=== PATIENT | female | born 1985 | race Caucasian/White ===

== ENCOUNTER → 2019-06-14 13:25 | Outpatient (BNVA) | payer MEDICAID, SELFPAY | PROVIDERS: Family Provider Obstetrics & Gynecology; Visit Provider Obstetrics & Gynecology | DX: O09.891 Supervision of other high risk pregnancies, first trimester (principal); O98.411 Viral hepatitis complicating pregnancy, first trimester; O99.340 Other mental disorders complicating pregnancy, unspecified trimester | CPT/HCPCS: 80307; 84315; 85027; 86592; 86762; 86803; 86850; 86900; 87086; 87340 ==

== ENCOUNTER → 2019-07-05 15:30 | Outpatient (BNVA) | payer MEDICAID, SELFPAY | PROVIDERS: Family Provider Obstetrics & Gynecology; Visit Provider Obstetrics & Gynecology | DX: O09.891 Supervision of other high risk pregnancies, first trimester (principal); O36.1110 Maternal care for Anti-A sensitization, first trimester, not applicable or unspecified | CPT/HCPCS: 84315; 86886; 87491; 87591; 88175 ==

== ENCOUNTER → 2019-07-24 15:09 | Outpatient (BNVA) | payer MEDICAID, SELFPAY | PROVIDERS: Family Provider Obstetrics & Gynecology; Visit Provider Obstetrics & Gynecology Female Pelvic Medicine and Reconstructive Surgery | DX: O09.891 Supervision of other high risk pregnancies, first trimester (principal); O98.412 Viral hepatitis complicating pregnancy, second trimester; B19.20 Unspecified viral hepatitis C without hepatic coma; Z3A.16 16 weeks gestation of pregnancy | CPT/HCPCS: 80076; 80307; 84315; 86850; 86886; 86900 ==

== ENCOUNTER → 2019-08-21 13:53 | Outpatient (BNVA) | payer MEDICAID, SELFPAY | PROVIDERS: Family Provider Obstetrics & Gynecology; Referring Provider Obstetrics & Gynecology; Visit Provider Obstetrics & Gynecology | DX: Z36.89 Encounter for other specified antenatal screening (principal); Z3A.21 21 weeks gestation of pregnancy | CPT/HCPCS: 76805 ==

== ENCOUNTER → 2019-08-28 11:47 | Outpatient (BNVA) | payer MEDICAID, SELFPAY | PROVIDERS: Family Provider Obstetrics & Gynecology; Visit Provider Obstetrics & Gynecology | DX: Z48.89 Encounter for other specified surgical aftercare (principal); O09.892 Supervision of other high risk pregnancies, second trimester; Z87.42 Personal history of other diseases of the female genital tract; Z3A.21 21 weeks gestation of pregnancy | CPT/HCPCS: 76817; 80076; 84315 ==

== ENCOUNTER → 2019-09-19 13:40 | Outpatient (BNVA) | payer MEDICAID, SELFPAY | PROVIDERS: Family Provider Obstetrics & Gynecology; Visit Provider Obstetrics & Gynecology | DX: O09.892 Supervision of other high risk pregnancies, second trimester (principal); O36.1910 Maternal care for other isoimmunization, first trimester, not applicable or unspecified | CPT/HCPCS: 81000; 86787; 86870; 86886 ==

== ENCOUNTER → 2019-10-18 14:20 | Outpatient (BNVA) | payer MEDICAID, SELFPAY | PROVIDERS: Family Provider Obstetrics & Gynecology; Visit Provider Obstetrics & Gynecology | DX: O09.892 Supervision of other high risk pregnancies, second trimester (principal) | CPT/HCPCS: 82950; 84315; 85027 ==

== ENCOUNTER → 2019-11-16 08:58 | Outpatient (BNVA) | payer MEDICAID, SELFPAY | PROVIDERS: Family Provider Obstetrics & Gynecology; Visit Provider Obstetrics & Gynecology | DX: O09.893 Supervision of other high risk pregnancies, third trimester (principal); O36.1130 Maternal care for Anti-A sensitization, third trimester, not applicable or unspecified; O99.323 Drug use complicating pregnancy, third trimester | CPT/HCPCS: 80307; 84315 ==

== ENCOUNTER 2019-11-20 12:28 | Outpatient (CLI) | payer MEDICAID, SELFPAY ==
[2019-11-20] VITALS (24 sets, daily range): BP systolic 0–131; BP diastolic 0–85; PULSE 59–77; RESP 18; TEMP 36.6; O2SAT 99–100; BMI 26.1
--- NOTE | 2019-11-20 13:02 | US_ITS ---
WS: [id number] ULTRASOUND OB FOCUSED HISTORY: vaginal bleeding, evaluate placenta COMPARISON: 11/16/2019 and 08/21/2019 Anterior placenta with no previa or abruption. Placenta ends well above the cervical os. Placenta gra de 2. heart rate at 131 BPM. US/US OB limited [id number] IMPRESSION: Anterior grade 2 placenta.
[2019-11-20] MEDS: terbutaline 1 mg/mL INJ 0.25 MG SUBCUT (14:31)
== END 2019-11-20 16:19 | disposition home or self-care (01) ==
LOC: OPOB 12:42 → OBGYN 16:11
PROVIDERS: Family Provider Obstetrics & Gynecology; Visit Provider Obstetrics & Gynecology
DX: O26.899 Other specified pregnancy related conditions, unspecified trimester (principal); Z3A.00 Weeks of gestation of pregnancy not specified; R10.9 Unspecified abdominal pain; O46.90 Antepartum hemorrhage, unspecified, unspecified trimester
CPT/HCPCS: 59025; 76815; 96372; 99211; J3105

== ENCOUNTER 2019-11-24 09:23 | Outpatient (CLI) | payer MEDICAID, SELFPAY ==
--- NOTE | 2019-11-24 09:29 | US_ITS ---
WS: [id number] BIOPHYSICAL PROFILE HISTORY: Evaluate well-being. COMPARISON: 11/18/2019 Cardiac activity: 144 bpm. Cervix: closed. Placenta: Anterior, no previa or abruption. Placenta grade: 2 Parameters are as follows: Breathin Movement: 2 Tone: 2 Fluid volume: 2 Largest vertical pocket of amniotic fluid is 8.2 cm. 1. Biophysical profile score: 8/8. 2. Largest vertical pocket of amniotic fluid is 8.2 cm. Abundant amount of amniotic fluid. US/US OB BPP wo NST 20030 IMPRESSION:
== END 2019-11-24 09:24 | disposition home or self-care (01) ==
PROVIDERS: Family Provider Obstetrics & Gynecology; Visit Provider Obstetrics & Gynecology
DX: O09.893 Supervision of other high risk pregnancies, third trimester (principal); O36.1130 Maternal care for Anti-A sensitization, third trimester, not applicable or unspecified
CPT/HCPCS: 76819

== ENCOUNTER → 2019-12-14 10:11 | Outpatient (BNVA) | payer MEDICAID, SELFPAY | PROVIDERS: Family Provider Obstetrics & Gynecology; Visit Provider Obstetrics & Gynecology | DX: O99.323 Drug use complicating pregnancy, third trimester (principal); Z3A.36 36 weeks gestation of pregnancy; O36.1130 Maternal care for Anti-A sensitization, third trimester, not applicable or unspecified; O99.343 Other mental disorders complicating pregnancy, third trimester; F32.9 Major depressive disorder, single episode, unspecified; F12.90 Cannabis use, unspecified, uncomplicated; O98.513 Other viral diseases complicating pregnancy, third trimester; O99.333 Smoking (tobacco) complicating pregnancy, third trimester; F17.210 Nicotine dependence, cigarettes, uncomplicated; O98.413 Viral hepatitis complicating pregnancy, third trimester; B19.20 Unspecified viral hepatitis C without hepatic coma | CPT/HCPCS: 84315; 87081 ==

== ENCOUNTER 2019-12-29 12:30 | Inpatient (IN) | payer MEDICAID, SELFPAY ==
[2019-12-29] VITALS (94 sets, daily range): BP systolic 0–156; BP diastolic 0–91; PULSE 46–82; RESP 16–17; TEMP 36.4–37.1; O2SAT 98–100; BMI 28.4
[2019-12-29 13:23] LABS: Basophils % 0.1 %; Eosinophils % 0.2 %; Hematocrit 37.1 % (37.0-47.0); Hemoglobin 12.3 g/dL (11.5-15.3); Lymphocytes # 2.3 10^3/uL (0.8-4.8); Mean Corpuscular HGB Conc 33.2 g/dL (30.0-36.0); Mean Corpuscular Hemoglobin 31.8 pg (28.0-34.0); Mean Corpuscular Volume 95.9 fL (81-99); Mean Platelet Volume 10.6 fL (7.4-10.4); Monocytes # 0.5 10^3/uL (0.2-0.9); Monocytes % 3.5 %; Neutrophils # 11.28 10^3/uL (1.8-7.7); Neutrophils % 79.8 %; Nucleated Red Blood Cells % 0 %; Platelet Count 218 10^3/cmm (130-400); Red Blood Count 3.87 10^6/uL (4.1-5.3); Red Cell Distribution Width 12.6 % (12.1-15.1); White Blood Count 14.2 10^3/uL (4.0-10.0)
[2019-12-29] MEDS: lactated ringers 1,000 ML 999 ML IV ×2 (13:23→16:24)
[2019-12-29 13:44] LABS: Amphetamines Screen Urine Negative (Negative); Barbiturates Screen Urine Negative (Negative); Benzodiazepines Screen Urine Negative (Negative); Cocaine Screen Urine Negative (Negative); Opiate Screen Urine Negative (Negative); PCP Screen Urine Negative (Negative); THC Screen Urine Positive (Negative)
[2019-12-29] MEDS: miSOPROStol 100 mcg tablet 25 MCG VAGINAL (13:57)
--- NOTE | 2019-12-29 18:45 | P.ANESASSM_ITS ---
Pre-Anesthetic Assessment Pre-Anesthetic Assessment: Height/Weight: Height 1.65 m Weight 77.564 kg Temp Pulse Resp BP Pulse Ox 98.2 F 75 16 125/81 98 12/29/19 18:00 12/29/19 18:43 12/29/19 18:00 12/29/19 18:43 12/29/19 18:13 Preop Diagnosis: IUP Proposed Procedure: Labor epidural Familial anesthetic complications: denies Was Beta Fang taken within 24 hours: N/A Last Intake: 00:00 Social: Social History: Tobacco and No alcohol Comment: THC Exam: Pre-Anes Outpt Exam: alert and oriented x 3 Airway: Submandibular: WNL Cervical ROM: WNL MP: 2 Dentition: Full Additional comments: upper dentures Pulmonary: Pulmonary: None reported CV/HEM: CV/HEM: None reported : : None reported Hepatic: Hepatic: Hepatitis (HepC) GI: GI: None reported Metabolic: Metabolic: None reported Musc/skel: Musc/skel: None reported Neuropsych: Neuropsych: Anxiety Anesthetic Plan: ASA status: 2 Anesthesia: Anesthesia Evaluation and MAC Meds/Allergies Current Medications: Current Medications Generic Name Dose Route Start Last Admin Trade Name Freq PRN Reason Stop Dose Admin Lactated Ringer's 1,000 mls @ 999 m ls/hr 12/29/19 12:29 12/29/19 17:00 Lactated Ringers IV 125 mls/hr .Q1H1M PRN Infusion hypotension Ropivacaine 200 mg in 100 mls @ 13 mls/hr 12/29/19 12:30 12/29/19 17:56 Naropin Premix EPIDURAL 13 mls/hr .Q7H42M MYKEL Administration Dextrose/Lactated Ringer's 1,000 mls @ 125 m ls/hr 12/29/19 12:30 12/29/19 16:29 Dextrose 5%-Lact ated Ringers IV Not Given .Q8H MYKEL PFSH Anesthesia PFSH: Medical History Cervical intraepithelial neoplasia III History of BECKY 3-status post LEEP Hepatitis C infection States was never treated. Herpes genitalia Diagnosed in teens. Last outbreak years ago as of 2019 Surgical History S/P breast biopsy (06/13/11) Right. Benign. Performed in [place]. Family History Other Adopted Social History Smoking and tobacco status: current every day smoker cigarettes Packs smoked per day: 0.50 [ Other cigarette details: has decreased from 1ppd. Started smoking at age 20. ] Quit status (tobacco): not considering quitting Alcohol intake: never Other details last substance use: Denies drug use. Adopted: Yes Female Reproductive History: Date of last menstrual period: 04/01/19 : 2 Data Anesthesia CBC & Chem 7: 12/29/19 12:50 Other Labs: Laboratory Results - last 48 hr 12/29/19 12/29/19 12:00 12:50 WBC 14.2 H RBC 3.87 L Hgb 12.3 Hct 37.1 MCV 95.9 MCH 31.8 MCHC 33.2 RDW 12.6 Plt Count 218 MPV 10.6 H Neut % (Auto) 79.8 Lymph % (Auto) 16.0 [place] % (Auto) 3.5 Eos % (Auto) 0.2 Baso % (Auto) 0.1 Neut # (Auto) 11.28 H Lymph # (Auto) 2.3 [place] # (Auto) 0.5 Eos # (Auto) 0.0 Baso # (Auto) 0.0 Nucleated RBC % (auto) 0 Nucleated RBCs # 0.0 Urine Opiates Screen Negative Ur Barbiturates Screen Negative Ur Phencyclidine Scrn Negative Ur Amphetamines Screen Negative U Benzodiazepines Scrn Negative Urine Cocaine Screen Negative U Marijuana (THC) Screen Positive H Cardiac Studies: No Data to Display
--- NOTE | 2019-12-29 18:48 | ANES.PROC ---
Anesthesia Procedures Procedure/Date: 12/29/19 Epidural: Time Out Performed: Yes Consents Signed: Procedure Consent Consent: requested by attending/covering physician and risks and benefits reviewed Lumbar Level: L3-L4 Epidural position: sitting Epidural procedure: sterile prep of area, 1% lidocaine to numb the area (3cc), 18 g needle (L3-L4 interspace), neg for paresthesia, test dose given (3 cc), 0.2% Ropivacaine bolus ml (10), placed PCEA, no systemic response, sterile dressing applied and 0.2% Ropiavacaine @ mls/hr (13 mls/hr )
[2019-12-29] MEDS: dextrose 5%-lactated ringers 1,000 ML 125 ML IV (19:34)
[2019-12-29] MEDS: oxytocin 30 UNIT/500 ML BAG IV (20:37)
[2019-12-30] VITALS (33 sets, daily range): BP systolic 0–164; BP diastolic 0–94; PULSE 41–69; RESP 16–18; TEMP 36.4–36.8; O2SAT 97–99
[2019-12-30] MEDS: dextrose 5%-lactated ringers 1,000 ML 125 ML IV (03:24)
--- NOTE | 2019-12-30 04:05 | PM.DELIVERY ---
Delivery Note: Date of delivery: December 30, 2019 Pre-delivery diagnoses: 1. at 39-0/7 weeks gestation. 2. Drug use complicating in third trimester 3. Depression complicating in third trimester 4. Hepatitis C complicating in third trimester 5. 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 6. History of genital herpes complicating in third trimester Post-delivery diagnoses: 1. Term at 39-0/7 weeks gestation - delivered. 2. Drug use complicating - delivered. 3. Depression complicating - delivered 4. Hepatitis C complicating - delivered 5. Maternal isoimmunization (anti-E) complicating - delivered 6. History of genital herpes complicating - delivered. 7. Viable female infant Procedure: Spontaneous vaginal delivery Op report anesthesia: Epidural Delivering Physician: Dr. Janes Leon Estimated blood loss (mL): 100 Pre-Delivery Course: Patient is a 34-year-old white female 2, para 1-0-0-1 with an LMP of 04/01/2019 and an EDC of 01/06/2020 based on LMP and consistent with a 20-week ultrasound. She presented to labor and delivery at 11:50 on 12/29/2019 with a complaint of possible rupture membranes. She stated that she had a gush of fluid at approximately 09:30 that morning which was clear in color. She reported having only sporadic contractions. On evaluation, she was identified as having ruptured membranes. She was 75% effaced and 2 cm dilated at the time. Her care has been mainly provided by Dr. Janes Leon at [facility]. Her care has been complicated by history of drug use. She was initially on Suboxone and was switched to just buprenorphine during the due to past history of heroin use. This was provided by [facility] in [place], [place]. She reported she had not used heroin since 11/2012. She wasshe had been using marijuana prior to and was still using it through the . She was also initially followed for maternal isoimmunization with anti-E. Titers remained low in the beginning part of . Father of baby was eventually tested and tested negative for the E antigen. She also had prepregnancy depression and has been treated with fluoxetine during the . She was known to have hepatitis C prior to with a viral load of 6.60 log IU/ml at the beginning of . She also had a history of genital herpes, but did not have any outbreaks during the . She was started on suppression with acyclovir starting at 37 weeks in the . She received 1 dose of Cytotec 25 mcg vaginally at 13:57. She started edgardo following this and became more uncomfortable in the afternoon. She had epidural placed. She had made minimal change through the afternoon and by around 20:00 her contractions had spaced out enough that Pitocin augmentation was ordered. This was started at 20:37. Pitocin was titrated up to 5 milliunits/min before she developed hyperstimulation of the uterus with tachysystole at 21:20 and developed a deceleration that started at 21:25. Pitocin was stopped, position changes were done, oxygen was placed and scalp electrode placed. Baby recovered and had return to baseline by 21:34. She was 6 cm dilated at that time. She recovered well following the deceleration with return of reactivity. She would have occasional variable and early decelerations. She continued to contract frequent enough and made cervical change and Pitocin was not restarted. She was found to be completely dilated by 01:30 on 12/29. Delivery: She was initially very comfortable with epidural and labored down. She started pushing at 03:13. She delivered at 03:48 as a spontaneous vaginal delivery of an occiput anterior female infant over an intact perineum under epidural anesthesia. Following delivery of the 's head, no nuchal cords were noted. Both hands were at delivering adjacent to the right cheek. Both arms were swept out and the rest the baby delivered atraumatically with the left shoulder anterior. Baby was spontaneously crying and was placed on the mother's abdomen. Cord was clamped and then cut by the reported father the baby. Baby was left in the care of the waiting nurses. Pitocin bolus was started. Placenta delivered intact by simple expression at 03:52. The cervix and vagina were palpated and noted to be intact. The labia were inspected and noted to be intact except for superficial bilateral periurethral lacerations which required no repair. FINDINGS 1. Viable female weighing 6 lbs 9 oz (2965 g) with Apgars of 10 at 1 minute and 10 at 5 minutes. 2. Three-vessel cord with no loops of nuchal cord noted. 3. Normal-appearing placenta with a central cord insertion. Post-Delivery Status: Mother and were left to recover in satisfactory condition. A&P Assessment and plan (1) complicated by maternal drug use, delivered, curr hospitaliz: Status: Acute (2) Mental disorder of mother, with delivery: Status: Acute (3) Chronic hepatitis C virus infection affecting , delivered, current hospitalization: Status: Acute (4) Genital herpes affecting , delivered, current hospitalization: Status: Acute (5) Maternal care for isoimmunization during antepartum period, currently delivered: Status: Acute Coding Level of Care Code Acute Gymnastics Instructor for Chg Fwd Diagnoses complicated by maternal drug use, delivered, curr hospitaliz O99.324; F19.90 Mental disorder of mother, with delivery O99.344 Chronic hepatitis C virus infection affecting , delivered, current hospitalization O98.42; B18.2 Genital herpes affecting , delivered, current hospitalization O98.32; A60.09 Maternal care for isoimmunization during antepartum period, currently delivered O36.1190
[2019-12-30] MEDS: benzocaine-menthol 78 gm Canister 1 SPRAY TOPICAL (06:32)
[2019-12-30] MEDS: lanolin oint 7 gm 1 APPLIC TOPICAL (06:33)
[2019-12-30] MEDS: prenatal vitamin Capsule 1 CAP PO (08:10)
[2019-12-30] MEDS: fluoxetine 10 mg Capsule PO (08:10)
[2019-12-30] MEDS: acyclovir 400 mg Tablet PO ×2 (08:10→17:15)
[2019-12-30 17:37] LABS: Hematocrit 34.8 % (37.0-47.0); Hemoglobin 11.5 g/dL (11.5-15.3); Mean Corpuscular Hemoglobin 32.4 pg (28.0-34.0); Mean Platelet Volume 10.3 fL (7.4-10.4); Platelet Count 194 10^3/cmm (130-400); Red Blood Count 3.55 10^6/uL (4.1-5.3); Red Cell Distribution Width 12.6 % (12.1-15.1); White Blood Count 16.3 10^3/uL (4.0-10.0)
[2019-12-31 05:00] VITALS: BP 128/80; PULSE 101; RESP 18; TEMP 36.6
[2019-12-31 09:35] VITALS: BP 124/71; PULSE 58; RESP 16; TEMP 36.6
[2019-12-31] MEDS: acyclovir 400 mg Tablet PO ×2 (09:38→18:33)
[2019-12-31] MEDS: fluoxetine 10 mg Capsule PO (09:38)
[2019-12-31] MEDS: prenatal vitamin Capsule 1 CAP PO (09:38)
[2019-12-31] MEDS: docusate sodium 100 mg Capsule PO ×2 (09:38→18:33)
[2019-12-31 15:50] VITALS: BP 136/82; PULSE 64; RESP 16; TEMP 36.8
--- NOTE | 2019-12-31 16:59 | P.DS_ITS ---
Discharge Providers DEVELOPER [employer]ING Date of Admission: 12/29/19 12:30 Date of Discharge: 12/31/19 Attending Provider at Admission: Janes Leon MD Attending Provider at Discharge: Janes Leon MD Diagnoses at Discharge Discharge Diagnosis (1) complicated by maternal drug use, delivered, curr hospitaliz: Status: Acute (2) Mental disorder of mother, with delivery: Status: Acute (3) Chronic hepatitis C virus infection affecting , delivered, current hospitalization: Status: Acute (4) Genital herpes affecting , delivered, current hospitalization: Status: Acute (5) Maternal care for isoimmunization during antepartum period, currently delivered: Status: Acute Reason for Visit Reason for Visit: Possible ROM prior to arrival Hospital Course Hospital Course: Patient is a 34-year-old white female 2, para 1-0-0-1 with an LMP of 04/01/2019 and an EDC of 01/06/2020 based on LMP and consistent with a 20-week ultrasound. She was 38-6/7 weeks gestation at the time of admission. She presented to labor and delivery on 12/29/2019 at 11:50 with complaint of possible rupture of membranes. She reported having a gush of fluid at about 9:30 in the morning which was clear in color. She reported having sporadic contractions. On evaluation she was found to be ruptured and was 75% effaced and 2 cm dilated. care has been complicated by history of drug use (IV heroin) with no use since 11/2012. She was in drug treatment at [facility] in [place], [place]. She was taking Suboxone initially and was switched to buprenorphine during the . She has been using marijuana during the . She also has hepatitis C. She has a history of genital herpes with no outbreaks during the . She is has been on suppression with acyclovir for the last 2 weeks of the . She had anti-E isoimmunization identified at the beginning of the ; however, titers had remained low during the . With her ruptured membranes and cervix on admission, she was given 1 dose of Cytotec 25 mcg vaginally. She became more comfortable following this and had epidural placed. However, she made minimal change and had Pitocin started. Following this she developed hyperstimulation of the uterus and had a prolonged deceleration which recovered after stopping Pitocin and oxygen placement. She continued to contract on her own following this and eventually progressed to complete dilation by 01:30 on 12/29. She was initially very comfortable and allowed to labor down. She started pushing at 03:13 and delivered at 03:48 as a spontaneous vaginal delivery of an occiput anterior female infant over an intact perineum under epidural anesthesia. Baby weighed 6 lbs 9 oz (2965 g) with Apgars of 10 at 1 minute and 10 at 5 minutes. She had superficial bilateral periurethral lacerations which required no repair. Both mother and did well following delivery. Day 1 Patient denies complaints at this time. Reports tolerating a regular diet without nausea or vomiting. Denies headaches. Denies shortness of breath or chest pains. Denies lightheadedness or dizziness with ambulation. Reports bleeding has slowed. Denies problems with urination. Physical Exam: See below. Plan Patient has been continued on her usual home medications during the hospitalization including the fluoxetine and buprenorphine. She is doing well at this time and is being discharged from the hospital. However, baby will not be released at this time in order for monitoring for possible narcotic withdrawal. Patient plans to room-in with the baby. Discharge to home. Discharge instructions discussed with patient. She is to follow-up in the office in approximately 6 weeks. Information Peripartum Data: Infant Delivery Method: Vaginal Physical Exam Const: COMMON NORMALS: no acute distress, average body habitus, alert and well nourished GENERAL APPEARANCE: well developed ORIENTATION/CONSCIOUSNESS: Yes oriented to person, Yes oriented to place and Yes oriented to time Resp: COMMON NORMALS: normal respiratory effort and clear to auscultation bilaterally AUSCULTATION: clear to auscultation bilaterally Cardio: COMMON NORMALS: regular rate, regular rhythm, No gallops present (Cardio) and No rub (Cardio) RATE: regular rate RHYTHM: regular rhythm GI: COMMON NORMALS: Soft to palpation, non-tender, No hepatosplenomegaly present and no masses (Except for nontender uterus, approximately 2 fingerbreadths below umbilicus.) AUSCULTATION: Yes normoactive bowel sounds PALPATION: Yes Soft to palpation and Yes No hepatosplenomegaly present Extremity: COMMON NORMALS: no calf tenderness NARRATIVE EXTREMITY EXAM: Trace lower extremity edema bilaterally Neuro: SENSORIUM/ORIENTATION: Yes alert, Yes oriented to person, Yes oriented to place and Yes oriented to time Psych: COMMON NORMALS: normal affect MOOD & AFFECT: Yes euthymic mood Urinary Catheter Management^: Edward: Cath Placed During This Visit: yes, but has since been removed by the nurse Reason for Continuing Indwelling Catheter: Other Urinary Catheter Date of Insertion: 12/29/19 Urinary Catheter Time of Insertion: 18:13 Date Urinary Catheter Removed: 12/30/19 Time Urinary Catheter Discontinued: 03:11 Discharge Data Data Completed and Pending: Labs from last 24 hours 12/30/19 17:31 WBC 16.3 H RBC 3.55 L Hgb 11.5 Hct 34.8 L MCV 98.0 MCH 32.4 MCHC 33.0 RDW 12.6 Plt Count 194 MPV 10.3 Vitals: Last Vital Signs Temp 97.8 F 12/31/19 09:35 Pulse 58 L 12/31/19 09:35 Resp 16 12/31/19 09:35 BP 124/71 12/31/19 09:35 Pulse Ox 98 12/30/19 17:00 Discharge Plan Discharge Patient Disposition: Home Condition: Stable Prescriptions: Continued prenat.vits,bere,[id number] Tablet 1 tab PO DAILY RF: 0 fluoxetine 10 mg capsule 10 mg PO DAILY Qty: 30 RF: 12 acyclovir 400 mg tablet 400 mg PO BID 30 Days Qty: 60 RF: 1 buprenorphine HCl 8 mg tablet, sublingual 8 mg SUBLINGUAL BID RF: 0 Discharge Orders: Discharge Order (Routine); Ordered 12/31/19 Ordered By: Janes Leon Referrals: Janes Leon MD [Family Provider] - 6 Weeks Discharge Diet: Regular Discharge Activity: Resume usual activity Patient Instructions: OB Vaginal Deliveries - [facility] Activity Restrictions/Additional Instructions: May use [id number] ibuprofen 200 mg, 3 tablets 4 times a day or 4 tablets 3 times a day, as needed for pain. Discharge Attestations [employer]ELOPER [employer] Time Spent in Discharge Care*: less than 30 min Coding Level of Care Code Acute Sound Art Instructor for Chg Fwd Diagnoses complicated by maternal drug use, delivered, curr hospitaliz O99.324; F19.90 Mental disorder of mother, with delivery O99.344 Chronic hepatitis C virus infection affecting , delivered, current hospitalization O98.42; B18.2 Genital herpes affecting , delivered, current hospitalization O98.32; A60.09 Maternal care for isoimmunization during antepartum period, currently delivered O36.6218
[2019-12-31 18:05] VITALS: BP 135/81; PULSE 101; RESP 16; TEMP 36.4
[2019-12-31 20:00] VITALS: BP 135/81; PULSE 101; RESP 16; TEMP 36.4
== END 2019-12-31 20:00 | disposition home or self-care (01) | DRG 806 ==
LOC: OBGYN 12-31 17:14 → OPOB 01-01 08:17
PROVIDERS: Admitting Provider Obstetrics & Gynecology; Family Provider Obstetrics & Gynecology; Visit Provider Obstetrics & Gynecology
DX: O42.02 Full-term premature rupture of membranes, onset of labor within 24 hours of rupture (principal); O98.32 Other infections with a predominantly sexual mode of transmission complicating childbirth; Z37.0 Single live birth; O98.42 Viral hepatitis complicating childbirth; O99.324 Drug use complicating childbirth; Z3A.38 38 weeks gestation of pregnancy; O99.344 Other mental disorders complicating childbirth; B18.2 Chronic viral hepatitis C; F12.20 Cannabis dependence, uncomplicated; O76 Abnormality in fetal heart rate and rhythm complicating labor and delivery; O71.82 Other specified trauma to perineum and vulva; F32.9 Major depressive disorder, single episode, unspecified
CPT/HCPCS: 12345; 36415; 51702; 59025; 59409; 80306; 83986; 85025; 85027; 99211; J2795; J8499

== ENCOUNTER → 2022-08-04 10:55 | Outpatient (BNVA) | payer MEDICAID, SELFPAY | PROVIDERS: Family Provider Obstetrics & Gynecology; Visit Provider Nurse Practitioner Women's Health | DX: N92.6 Irregular menstruation, unspecified (principal) | CPT/HCPCS: 81025 ==

== ENCOUNTER 2022-08-07 21:26 | Emergency (ER) | payer MEDICAID, SELFPAY ==
[2022-08-07 21:31] VITALS: BMI 29.4
[2022-08-07 21:33] VITALS: BP 124/57; PULSE 96; RESP 16; TEMP 36.8; O2SAT 98
--- NOTE | 2022-08-07 21:47 | USR_ITS ---
PROCEDURE INFORMATION: Exam: US , Transvaginal Exam date and time: 08/07/2022 10:14 PM Age: 37 years old Clinical indication: Lmp or gestational age (in weeks): 8w6d; Antepartum complications; Bleeding; ; Additional info: 8-9 wks preg; Bleeding LABS AND CLINICAL REPORTS: Serum Choriogonadotropin (HCG): 6697 mIU/mL Last menstrual period start date: 06/06/2022 Gestational age (Established): 8 w 6 d Estimated due date (Established): 03/13/2023 TECHNIQUE: Imaging protocol: Real-time transvaginal obstetrical ultrasound of the maternal pelvis with image documentation. Transvaginal imaging was used for better evaluation of the fetus, adnexa, and/or cervix. COMPARISON: US OB BPP wo NST [facility] 12/27/2019 3:03 PM FINDINGS: Gestation: Negative for intrauterine , patient remains at risk for ectopic , close clinical correlation, serial beta HCG levels and follow-up ultrasound as clinically indicated advised. MATERNAL: Uterus: Uterus measures 8.5 cm x 6.6 cm x 5.9 cm. Right ovary/adnexa: Right ovary measures 3.2 cm x 2.7 cm x 2.1 cm. Right ovarian volume is 9.7 mL. Left ovary/adnexa: Left ovary measures 3.1 cm x 3.2 cm x 1.7 cm. Left ovarian volume is 8.5 mL. US/US OB <=14 wk fetus w transvag IMPRESSION: Negative for intrauterine , patient remains at risk for ectopic , close clinical correlation, serial beta HCG levels and follow-up ultrasound as clinically indicated advised.
--- NOTE | 2022-08-07 21:48 | ED_ITS ---
HPI - Female Genitourinary General: Chief complaint: Vaginal Bleeding Stated complaint: , bleeding-8 wks Time Seen by Provider: 08/07/22 21:29 Source: patient Mode of arrival: ambulatory Limitations: no limitations History of Present Illness: Patient is a female at approximately 8w5d gestation here for complaints of vaginal bleeding/cramping that started 2 hours ago. She states she first noticed light pink spotting but states it has become bright red. She quantifies bleeding is enough to soak a pad. She has some minor pelvic cramping. Denies vaginal discharge/odor. MD elicited complaint: vaginal bleeding and possible miscarriage Onset (ago): hour(s) Severity: mild Quality of pain: cramping Vaginal discharge: none Vaginal bleeding: moderate and bright red Exacerbating factors: none Relieving factors: none Associated symptoms: Reports no associated symptoms; Deny nausea or vaginal discharge Treatment prior to arrival: none Sexual activity: Yes Patient : Yes Date of Last Menstrual Period: 06/06/22 Review of Systems Const: Denies: fever(s), chills, body aches, fatigue or malaise Card: Denies: chest pain Resp: Denies: dyspnea GI: Denies: nausea, vomiting or change in bowel habits : Reports: vaginal bleeding and pelvic pain (cramping); Denies: flank pain, difficulty voiding, dysuria, urinary frequency, urinary urgency, hematuria, genital pruritis, vaginal odor or vaginal discharge Musc: Denies: back pain Neuro: Denies: dizziness PFSH ED PFSH: Medical History Cervical intraepithelial neoplasia III History of BECKY 3-status post LEEP Hepatitis C infection States was never treated. Herpes genitalia Diagnosed in teens. Last outbreak years ago as of 2022 Surgical History S/P breast biopsy (06/13/11) Right. Benign. Performed in [place]. Family History Other Adopted Social History Other details last substance use: Denies drug use. Female Reproductive History: Date of last menstrual period: 01/07/23 Physical Exam Const: COMMON NORMALS: no acute distress, average body habitus, patient orient ed x3, no limitations, healthy appearing, alert and well nourished GENERAL APPEARANCE: cooperative Resp: COMMON NORMALS: normal respiratory effort and clear to auscultation bilaterally AUSCULTATION: clear to auscultation bilaterally Cardio: COMMON NORMALS: regular rate and regular rhythm RATE: regular rate RHYTHM: regular rhythm GI: COMMON NORMALS: Normal to inspection, nondistended, normoactive bowel sounds present, Soft to palpation, non-tender, No hepatosplenomegaly present and no masses INSPECTION: Yes normal to inspection AUSCULTATION: Yes normoactive bowel sounds PALPATION: Yes Soft to palpation, No Tenderness to palpation present (GI), No Guarding due to palpation present (GI), No Rigid due to palpation and Yes No hepatosplenomegaly present : COMMON NORMALS: Yes no CVA tenderness BLADDER/KIDNEY EXAM: Yes no CVA tenderness SPECULUM EXAM - VAGINA: Yes tissue present in vagina and Yes other (clot/POC cleared from vaginal canal) SPECULUM EXAM - CERVIX: Yes Cervical os open and Yes Tissue present in the cervical os (removed) OB/EXTERNAL & SPECULUM: Deferred OB/external & speculum exam, tissue present in vagina and Cervical os open Back/Pelvis: COMMON NORMALS: no CVA tenderness Extremity: GENERAL: Yes normal exam except as noted Neuro: YESSENIA COMA SCALE: document GCS findings Yessenia coma scale eye o pening: Spontaneous Yessenia coma scale verbal response: Orientated [place] coma scale motor response: Obey commands Yessenia coma scale total score: 15 COMMON NORMALS: patient oriented x3 SENSORIUM/ORIENTATION: Yes alert Skin: COMMON NORMALS: no rashes or lesions noted GENERAL SKIN EXAM: no rashes or lesions noted Course Vital Signs: Vital signs: Vital Signs Temperature 98.2 F 08/07/22 21:33 Pulse Rate 96 08/07/22 21:33 Respiratory Rate 16 08/07/22 21:33 Blood Pressure 124/57 08/07/22 21:33 Pulse Oximetry 98 08/07/22 21:33 Oxygen Delivery Me thod 08/07/22 21:33 MDM - Female Medical Decision Making No IUP seen on US. Clots/POC visualized/removed on exam. Bleeding controlled. V itals and H&H normal. Recommend follow up with [facility] early this week. Strict return to ED precautions given regarding the weekend. Lab Data 08/07/22 21:50 Laboratory Results WBC 10.9 10^3/uL (4.0-10.0) H 08/07/22 21:50 RBC 4.43 10^6/uL (4.1-5.3) 08/07/22 21:50 Hgb 13.1 g/dL (11.5-15.3) 08/07/22 21:50 Hct 40.8 % (37.0-47.0) 08/07/22 21:50 MCV 92.1 fl (81-99) 08/07/22 21:50 MCH 29.6 pg (28.0-34.0) 08/07/22 21:50 MCHC 32.1 g/dL (30.0-36.0) 08/07/22 21:50 RDW 11.8 % (12.1-15.1) L 08/07/22 21:50 Plt Count 240 10^3/cmm (130-400) 08/07/22 21:50 MPV 9.5 fL (7.4-10.4) 08/07/22 21:50 Neut % (Auto) 58.4 % 08/07/22 21:50 Lymph % (Auto) 33.7 % 08/07/22 21:50 [place] % (Auto) 5.9 % 08/07/22 21:50 Eos % (Auto) 1.4 % 08/07/22 21:50 Baso % (Auto) 0.4 % 08/07/22 21:50 Neut # (Auto) 6.40 10^3/uL (1.8-7.7) 08/07/22 21:50 Lymph # (Auto) 3.7 10^3/uL (0.8-4.8) 08/07/22 21:50 [place] # (Auto) 0.6 10^3/uL (0.2-0.9) 08/07/22 21:50 Eos # (Auto) 0.2 10^3/uL (0.0-0.8) 08/07/22 21:50 Baso # (Auto) 0.0 10^3/uL (0.0-0.1) 08/07/22 21:50 Nucleated RBC % (auto) 0 % 08/07/22 21:50 Nucleated RBCs # 0.0 /100WBC 08/07/22 21:50 Ser , Semi-Qnt 6697.00 mIU/mL 08/07/22 21:50 Blood Type A Positive 08/07/22 21:50 Rho(D) Type Positive 08/07/22 21:50 Discharge Plan Discharge Patient Disposition: Home Clinical Impression: Complete miscarriage Condition: Stable Prescriptions: No Action prenat.vits,bere,gct-[id number]-[id number] Tablet 1 tab PO DAILY buprenorphine HCl 8 mg tablet, sublingual 8 mg SUBLINGUAL BID fluoxetine 10 mg capsule 10 mg PO DAILY PRN Discharge Orders: Discharge ED (Routine); Ordered 08/07/22 Ordered By: Sri Doss Referrals: Catie Alberto APN, MARCO [Primary Care Provider] - Patient Instructions: Miscarriage (ED) Activity Restrictions/Additional Instructions: As we discussed you need to follow-up with Women's Health early this week for re-evaluation. You need to return to the emergency department for worsening or severe vaginal bleeding (soaking more than a pad an hour), severe abdominal/pelvic pain, lightheadedness/dizziness/passing out episodes, or any other concerns you may have. Coding Level of Care Code ED Station Baggage Porter for Rachael Driscoll
[2022-08-07 21:57] LABS: Basophils % 0.4 %; Eosinophils # 0.2 10^3/uL (0.0-0.8); Eosinophils % 1.4 %; Hematocrit 40.8 % (37.0-47.0); Hemoglobin 13.1 g/dL (11.5-15.3); Lymphocytes # 3.7 10^3/uL (0.8-4.8); Lymphocytes % 33.7 %; Mean Corpuscular HGB Conc 32.1 g/dL (30.0-36.0); Mean Corpuscular Hemoglobin 29.6 pg (28.0-34.0); Mean Corpuscular Volume 92.1 fl (81-99); Mean Platelet Volume 9.5 fL (7.4-10.4); Monocytes # 0.6 10^3/uL (0.2-0.9); Monocytes % 5.9 %; Neutrophils % 58.4 %; Nucleated Red Blood Cells % 0 %; Platelet Count 240 10^3/cmm (130-400); Red Blood Count 4.43 10^6/uL (4.1-5.3); Red Cell Distribution Width 11.8 % (12.1-15.1); White Blood Count 10.9 10^3/uL (4.0-10.0)
--- NOTE | 2022-08-07 22:10 | PC.NURSE ---
Pt placed in gown, placed on pelvic bed, prepared for pelvic and US. Provider aware.
--- NOTE | 2022-08-07 22:50 | PC.NURSE ---
Assisted provided with pelvic exam.
--- NOTE | 2022-08-10 09:44 | DCPLANNER ---
Addendum entered by Ines Logan 08/20/22 08:18: This appointment was cancelled Addendum entered by Ines Logan 08/10/22 13:45: Patient has a follow up appointment scheduled for Friday, August 19, 2022 at 1:15 with Catie Alberto at [facility]. Clinic will call patient with appointment information. Original Note: senior software engineering manager had message to schedule a follow up appointment for patient with [facility]. senior software engineering manager sent patients information to the front office staff at [facility]. Patients information will be printed and reviewed. Clinic will call patient with appointment information.
== END 2022-08-07 23:27 | disposition home or self-care (01) ==
PROVIDERS: Emergency Provider Physician Assistant; PCP Nurse Practitioner Women's Health
DX: O03.9 Complete or unspecified spontaneous abortion without complication (principal)
CPT/HCPCS: 36415; 76801; 76817; 84702; 85025; 86900; 99284

== ENCOUNTER → 2022-08-11 10:45 | Outpatient (BNVA) | payer MEDICAID, SELFPAY | PROVIDERS: PCP Nurse Practitioner Women's Health; Visit Provider Obstetrics & Gynecology | DX: O03.9 Complete or unspecified spontaneous abortion without complication (principal) | CPT/HCPCS: 84702 ==

== ENCOUNTER → 2022-10-19 14:47 | Outpatient (BNVA) | payer MEDICAID, SELFPAY | PROVIDERS: PCP Family Medicine; Visit Provider Family Medicine | DX: B19.20 Unspecified viral hepatitis C without hepatic coma (principal) | CPT/HCPCS: 80053; 82977; 84443; 85025; 85610; 86705; 86706; 86709; 86803; 87340; 87522; 87806; 87902 ==

== ENCOUNTER → 2022-10-30 07:07 | Outpatient (BNVA) | payer MEDICAID, SELFPAY | PROVIDERS: PCP Family Medicine; Visit Provider Family Medicine | DX: B19.20 Unspecified viral hepatitis C without hepatic coma (principal) | CPT/HCPCS: 85610 ==

== ENCOUNTER 2022-11-25 08:00 | Outpatient (CLI) | payer MEDICAID, SELFPAY ==
--- NOTE | 2022-11-25 08:10 | US_ITS ---
WS: [id number] ULTRASOUND ABDOMEN LIMITED CLINICAL INFORMATION: hepatitis c COMPARISON: None. FINDINGS: Liver Size: Mild hepatomegaly Craniocaudal length: 16.7 cm. Echogenicity: Coarse Surface nodularity: None. Mass (size and location): None. Bile ducts Intrahepatic ducts: Normal. Common bile duct diameter: 0.5 cm. Gallbladder Incidental slightly hydropic gallbladder Gallstones: None. Gallbladder sludge: None. Gallbladder wall thickening: None. Pericholecystic fluid: None. Sonographic Montanez sign: Absent. Pancreas Normal as visualized. Right kidney: Normal. Hydronephrosis: None. Size: 10.5 cm x 5.9 cm x 5.1 cm. Abdominal aorta and IVC Visualized portions are normal. Ascites: None. US/US liver 61945 IMPRESSION: 1. Mild hepatomegaly measuring 16.7 cm 2. Coarse hepatic echogenicity with echogenic portal triads can be seen with h epatitis. Recommend correlation with liver function tests. 3. Incidental fluid distended gallbladder. No cholelithiasis. Normal common bi le duct. 4. No hydronephrosis RIGHT kidney.
== END 2022-11-25 08:01 | disposition home or self-care (01) ==
LOC: RAD 08:03
PROVIDERS: PCP Family Medicine; Visit Provider Family Medicine
DX: B19.20 Unspecified viral hepatitis C without hepatic coma (principal); R16.0 Hepatomegaly, not elsewhere classified
CPT/HCPCS: 76705

== ENCOUNTER → 2023-03-12 15:55 | Outpatient (BNVA) | payer MEDICAID, SELFPAY | PROVIDERS: PCP Family Medicine; Visit Provider Emergency Medicine | DX: R52 Pain, unspecified (principal); N73.9 Female pelvic inflammatory disease, unspecified; Z20.2 Contact with and (suspected) exposure to infections with a predominantly sexual mode of transmission | CPT/HCPCS: 87400 ==

== ENCOUNTER → 2023-03-19 19:12 | Outpatient (BNVA) | payer MEDICAID, SELFPAY | PROVIDERS: PCP Family Medicine | DX: Z20.2 Contact with and (suspected) exposure to infections with a predominantly sexual mode of transmission (principal) | CPT/HCPCS: 87491; 87591 ==

== ENCOUNTER → 2023-03-23 15:57 | Outpatient (BNVA) | payer MEDICAID, SELFPAY | PROVIDERS: PCP Family Medicine; Visit Provider Family Medicine | DX: Z20.2 Contact with and (suspected) exposure to infections with a predominantly sexual mode of transmission (principal) | CPT/HCPCS: 87491; 87591 ==

== ENCOUNTER 2023-08-18 15:55 | Outpatient (CLI) | payer MEDICAID, SELFPAY | END 2023-08-18 15:56 | disposition home or self-care (01) | LOC: LAB 15:58 | PROVIDERS: PCP Family Medicine; Visit Provider Nurse Practitioner Women's Health | DX: O20.0 Threatened abortion (principal); Z11.3 Encounter for screening for infections with a predominantly sexual mode of transmission; N92.6 Irregular menstruation, unspecified; Z3A.00 Weeks of gestation of pregnancy not specified | CPT/HCPCS: 36415; 81025; 84702; 85025; 87086; 87491; 87591 ==

== ENCOUNTER 2023-08-25 17:14 | Outpatient (CLI) | payer MEDICAID, SELFPAY ==
[2023-08-25 17:49] LABS: HCG Quantitative 9.51 mIU/mL
== END 2023-08-25 17:15 | disposition home or self-care (01) ==
LOC: LAB 17:15
PROVIDERS: PCP Family Medicine; Visit Provider Nurse Practitioner Women's Health
DX: O20.0 Threatened abortion (principal); Z3A.00 Weeks of gestation of pregnancy not specified
CPT/HCPCS: 36415; 84702

== ENCOUNTER 2023-09-03 17:33 | Outpatient (CLI) | payer MEDICAID, SELFPAY | END 2023-09-03 17:34 | disposition home or self-care (01) | LOC: LAB 17:35 | PROVIDERS: PCP Family Medicine; Visit Provider Nurse Practitioner Women's Health | DX: O20.0 Threatened abortion (principal) | CPT/HCPCS: 36415; 84702 ==